=== PATIENT | female | born 1945 | race Hispanic/Latino ===

== ENCOUNTER 2016-09-02 13:39 | Emergency (ER) | payer MEDICARE, MEDICAID ==
[2016-09-02 13:43] VITALS: BP 161/51; PULSE 54; RESP 16; O2SAT 99
--- NOTE | 2016-09-02 14:11 | DRSVH ---
PROCEDURE: X-RAY CHEST ONE VIEW, PORTABLE ([id number]) INDICATIONS: 71 year-old female with shortness of breath and left upper chest pain. TECHNIQUE: One view of the chest was acquired. COMPARISON: [facility], , CHEST 1VW (PORTABLE), 08/24/2013, 0:41. [facility], CR, CHEST 1VW (PORTABLE), 03/05/2013, 22:03. [facility], , CHEST 1VW (PORTABLE), , 17:27. FINDINGS: Surgical changes and devices: None. Lungs and pleura: No pleural effusions or pneumothorax. Lungs are clear. Mediastinum: Mediastinal contours appear normal. Heart size is normal. Bones and chest wall: No suspicious bony lesions. Overlying soft tissues appear unremarkable. IMPRESSION: No acute cardiopulmonary disease. Dictated by: Andre Martínez M.D. on 09/02/2016 at 14:08 Approved by: Andre Martínez M.D. on 09/02/2016 at 14:09
[2016-09-02] MEDS ORDERED: 0.9% Sodium Chloride 1,000 ML IV ONE ×2 (14:20→15:43)
[2016-09-02 14:21] LABS: BASOPHILS % (AUTO) 0.6 % (0-3); EOSINOPHILS % (AUTO) 1.4 % (0-5); MONOCYTES % (AUTO) 3.9 % (4-12); Mean Corpuscular Hemoglobin 29.5 pg (27.0-35.0); Mean Corpuscular Volume 87.7 fL (81-100); NEUTROPHILS % (AUTO) 73.3 % (40-74); Platelet Count 260 bil/L (150-400)
[2016-09-02 14:43] LABS: TROPONIN T < 0.010 ug/L (0.0-0.011)
[2016-09-02 14:51] LABS: Magnesium 1.9 mg/dL (1.6-2.6)
--- NOTE | 2016-09-02 15:32 | ED.REPORT ---
HPI-General Illness Date of Service Sep 02, 2016 ED Provider: Tu aMtt MD Patient is a 71 year old female with a hx of HTN who presents to the ED complaining of lightheadedness onset this morning at 1000. At one point she reports she fell; her states that she was feeling lightheaded and went down to one knee, but didn't actually fall. Associated symptoms include confusion and nausea. She denies chest pain, SOB, vomiting, abdominal pain, headache, vision changes, focal weakness, or any other symptoms. She states that she's beginning to feel better. Nursing Notes Stated Complaint: FEELING DIZZY/LIGHT HEADED Chief Complaint: Dysrhythmia/Cardiac Nursing Notes Reviewed: Yes Allergies: Coded Allergies: No Known Allergies (Verified , 03/05/13) General Time Seen by MD: 15:11 Chief Complaint Other (Near syncope ) Hx Obtained From: Patient, Daughter Arrived By: Walk-in Sudden in Onset?: Yes Onset Occurred: 5 - 8 hours ago Location: : Chest Radiation: : Does not radiate Severity: Current: Mild Severity: Maximum: Mild Associated with: Reports: Nausea Exacerbated by: Standing up Recent Healthcare: Recent doctor visit Past Medical History Past Medical History Reports: Hypertension Past Surgical History MAXIMILIAN ear Nasal Reports: (x2), Cataract surgery Smoking History Unknown if Ever Smoker Social History Other Social History: Good social support, Ambulatory Status Independent Review of Systems +near syncope Full Review of Systems Respiratory: Denies: Shortness of breath GI: Reports: Nausea, Denies: Abdominal pain, Vomiting Neurologic: Reports: Confusion, Denies: Headache, Vision change, Weakness Complete sys rev & neg: except as marked. Physical Exam Nursing note and vitals reviewed. Constitutional: Well-developed, well-nourished. Not diaphoretic. Head: Normocephalic and atraumatic. Eyes: EOM are normal. Pupils are equal, round, and reactive to light. Neck: Supple, no tracheal deviation. Cardiovascular: Normal rate, regular rhythm. Equal and intact distal pulses throughout. Pulmonary/Chest: Effort normal and breath sounds normal No respiratory distress. Abdominal: Soft. No distension. There is no tenderness, rebound, or guarding. Bowel sounds present. Musculoskeletal: Range of motion grossly intact, moving all extremities. No edema or tenderness appreciated. Neurological: AOx3. Grossly nonfocal exam. Strength and sensation intact and equal to bilateral upper and lower extremities. Normal finger to nose testing. No pronator drift. Skin: Warm and dry, no rashes or pallor appreciated. Psychiatric: Appropriate mood and affect. Behavior appears normal. Vital Signs Vital Signs Date Time Temp Pulse Resp B/P Pulse Ox O2 Delivery O2 Flow Rate FiO2 09/02/16 19:59 66 17 171/68 96 Room Air 09/02/16 17:39 36.6 09/02/16 16:46 59 17 162/43 95 Room Air 09/02/16 13:43 36.9 54 16 161/51 99 Room Air Interpretation & Diagnostics Lab Results Interpretation Result Diagram: 09/02/16 1400 09/02/16 1400 Test 09/02/16 14:00 09/02/16 17:45 White Blood Count 9.0th/mm3 (3.8-10.1) Red Blood Count 4.40mil/mm3 (3.90-5.20) Hemoglobin 13.0g/dL (12.0-15.6) Hematocrit 38.6% (35.0-46.0) Mean Corpuscular Volume 87.7fL (81-100) Mean Corpuscular Hemoglobin 29.5pg (27.0-35.0) Mean Corpuscular Hemoglobin Concent 33.7% (32.0-37.0) Red Cell Distribution Width 13.1% (12.3-15.4) Platelet Count 260bil/L (150-400) Neutrophils (%) (Auto) 73.3% (40-74) Lymphocytes (%) (Auto) 20.6% (14-46) Monocytes (%) (Auto) 3.9% (4-12) Eosinophils (%) (Auto) 1.4% (0-5) Basophils (%) (Auto) 0.6% (0-3) Sodium Level 138mEq/L (134-144) Potassium Level 4.7mEq/L (3.5-5.2) Chloride Level 101mEq/L (97-108) Carbon Dioxide Level 21mmol/L (18-29) Blood Urea Nitrogen 25mg/dL (8-27) Creatinine 1.03mg/dL (0.57-1.00) Estimat Glomerular Filtration Rate 75mL/min (>59) Glucose Level 130mg/dL (60-99) Lactic Acid Level 1.8mmol/L (0.4-2.0) Calcium Level 10.0mg/dL (8.5-10.1) Magnesium Level 1.9mg/dL (1.6-2.6) Total Bilirubin 0.4mg/dL (0.0-1.2) Aspartate Amino Transf (AST/SGOT) 26U/L (0-50) Alanine Aminotransferase (ALT/SGPT) 21U/L (0-32) Alkaline Phosphatase 87U/L (25-165) Troponin T < 0.010ug/L (0.0-0.011) Total Protein 7.6g/dL (6.4-8.4) Albumin 4.4g/dL (3.4-5.0) Hold [place] Top Tube Received (Received) Alcohols < 10mg/dL (0-10) Urine Color Yellow (YELLOW) Urine Appearance Clear (CLEAR,HAZY) Urine pH 6.0 (5.0-8.0) Urine Specific [place] 1.010 (1.003-1.035) Urine Protein Negativemg/dL (NEG,TRACE) Urine Glucose (UA) Negativemg/dL (NEGATIVE) Urine Ketones Negativemg/dL (NEGATIVE) Urine Occult Blood Negative (NEGATIVE) Urine Nitrite Negative (NEGATIVE) Urine Bilirubin Negative (NEGATIVE) Urine Urobilinogen Normalmg/dL (NORMAL) Urine Leukocyte Esterase Trace (NEGATIVE) Urine RBC 0-2/hpf (0-2) Urine WBC 0-5/hpf (0-5) Urine Epithelial Cells Moderate/hpf (NONE-MOD) Urine Crystals None seen (NONE SEEN) Urine Bacteria None/hpf (NONE-FEW) Urine Hyaline Casts None/lpf (NONE) Urine Granular Casts None seen (NONE SEEN) Urine Waxy Casts None seen (NONE SEEN) Urine Red Blood Cell Casts None seen (NONE SEEN) Urine White Blood Cell Casts None seen (NONE SEEN) Urine Mucus None seen (None Seen) Urine Trichomonas None seen (NONE SEEN) Urine Yeast None (NONE SEEN) Urinalysis Comment None Urine Culture Reflexed Indicated ECG Interpretation ECG Interpretation: Sinus rate of 58 No prior Time: 13:58 Interpreted by: ED physician X-Ray Chest Interpretation Chest Xray Interpretation: IMPRESSION: No acute cardiopulmonary disease. Dictated by: Andre Martínez M.D. on 09/02/2016 at 14:08 Approved by: Andre Martínez M.D. on 09/02/2016 at 14:09 View: Portable, 1 view Interpretation / Wet Read by: Interpret - Radiologist CT Head Interpretation IMPRESSION: No acute intracranial abnormalities. Periventricular white matter chronic small vessel ischemic changes as before. Dictated by: Andre Martínez M.D. on 09/02/2016 at 16:20 Approved by: Andre Martínez M.D. on 09/02/2016 at 16:23 Study: Head CT no contrast Interpretation / Wet Read by: Interpret - Radiologist Re-Eval/Medical Decision Med Decision/Clinical Course 71-year-old female presenting to the ED for evaluation after an episode of lightheadedness earlier today. She had no chest pain associated with this, no palpitations. She has a normal neurologic exam. CT head negative for acute abnormalities. No obvious electrolyte derangements that would account for her symptoms at this time. Urinalysis with no evidence for infection. Upon reassessment, family is present and states that she is acting normally. She has good outpatient follow-up. Given her reassuring workup, her lack of symptoms at this time, and her good support system, outpatient follow-up seems reasonable. Patient agreed with the plan as stated, no further questions. Time of Eval: 19:08 Re-Evaluation/Progress Note: Rechecked patient. She is feeling better and family reports she is back to baseline. Discussed plan for discharge. Patient understands and agrees with plan. All questions addressed at this time. Counseled Regarding: Diagnosis, Lab results, Need for follow-up, When/why to return to ED Discharge & Departure Primary Impression: Lightheadedness Additional Impression: Near syncope Disposition: Home Discharge Condition All VS Reviewed: Yes Condition: Improved Patient Instructions: Near Syncope (ED) Additional Instructions: Thank you for entrusting us with your care. Your X-ray, CT scan, labs, and EKG are reassuring. We did not find a dangerous cause for your symptoms at this time. Call your doctor Sunday morning to schedule a follow up appointment and be re- evaluated. Inform them of today's visit. Return to the emergency department if you experience new or worsening symptoms. Referrals: Eneida Woody MD (PCP) Scribe Attestation Portions of this note were transcribed by Estuardo Swan. IDr. Matt personally performed the history, physical exam and medical decision-making; I reviewed and confirmed the accuracy of the information in the transcribed note. Signed by: Estuardo Swan 09/02/161937 copies to: Eneida Woody MD, William B MD Sep 02, 2016 15:32 ESTUARDO SWAN Sep 02, 2016 15:42
--- NOTE | 2016-09-02 16:25 | DRSVH ---
PROCEDURE: CT BRAIN WITHOUT CONTRAST ([id number]) INDICATIONS: 71 year-old female with syncope and altered mental status. TECHNIQUE: Noncontrast 4.5 mm thick angled axial sections acquired from the foramen magnum to the vertex, with c oronal reformats. COMPARISON: [facility], CT, BRAIN W/O CONTRAST, 03/05/2013, 22:35. [facility], CT, BRAIN W/O CONTRAST, 10/27/2010, 21:06. [facility], CT, BRAIN W/O CONTRAST, 04/2007, 10:19. FINDINGS: Image quality: Excellent. CSF spaces: Basal cisterns are patent. No extra-axial fluid collections. The ventricles are symmet sarah in size and shape. Brain: No intracranial bleeds or masses. There are periventricular and deep white matter chronic sm all vessel ischemic changes. There is intracranial internal carotid artery atherosclerosis. Skull and face: Calvarium appears intact, without suspicious lesions. Nonacute nasal fractures are a gain noted. Sinuses: Visualized sinuses and mastoids are clear. IMPRESSION: No acute intracranial abnormalities. Periventricular white matter chronic small vessel is chemic changes as before. Dictated by: Andre Martínez M.D. on 09/02/2016 at 16:20 Approved by: Andre Martínez M.D. on 09/02/2016 at 16:23
[2016-09-02 16:46] VITALS: BP 162/43; PULSE 59; RESP 17; O2SAT 95
[2016-09-02 18:08] LABS: APPEARANCE,URINE CLEAR (CLEAR,HAZY); COLOR,URINE YELLOW (YELLOW); OCCULT BLOOD,URINE NEGATIVE (NEGATIVE); UROBILINOGEN,URINE NORMAL (NORMAL)
[2016-09-02 19:59] VITALS: BP 171/68; PULSE 66; RESP 17; O2SAT 96
== END 2016-09-02 19:57 | disposition home or self-care (01) ==
LOC: SED 13:39
DX: R42 Dizziness and giddiness (principal); R55 Syncope and collapse; I10 Essential (primary) hypertension
CPT/HCPCS: 36415; 70450; 71010; 80053; 81000; 82948; 83605; 83735; 84484; 85025; 87086; 87088; 93005; 96360; 96361; 99285; G0480; J7030